=== PATIENT | female | born 1965 | race Asian ===

== ENCOUNTER 2020-11-30 21:52 | Emergency (ER) | payer OTHER ==
[~2020-11-30] VITALS: Ht 152.4 cm; Wt 60.3 kg
[2020-11-30 22:01] VITALS: Ht 152.4 cm; Wt 60.3 kg
[2020-11-30 22:36] LABS: PLATELET COUNT 271 x10^3mcL (179-408)
[2020-11-30 22:37] LABS: UA SPECIFIC GRAVITY >=1.030 (1.005-1.035); microscopic required? YES; urine erythrocyte 1+ (NEGATIVE)
[2020-11-30 22:50] LABS: ALBUMIN 3.8 g/dL (3.4-5.0); ALKALINE PHOSPHATASE 83 U/L (46-116); ALT/SGPT 34 U/L (14-59); AST/SGOT 21 U/L (15-37); BILIRUBIN TOTAL 0.6 mg/dL (0.20-1.00); CALCIUM 9.3 mg/dL (8.5-10.1); CARBON DIOXIDE 26.4 mmol/L (21-32); CHLORIDE SERUM 99 mmol/L (98-107); CREATININE SERUM 0.8 mg/dL (0.6-1.0); GFR1 > 60 mL/min; GLUCOSE SERUM 137 mg/dL (74-106); LIPASE 164 IU/L (73-393); POTASSIUM SERUM 3.8 mmol/L (3.5-5.1); SODIUM SERUM 136 mmol/L (136-145); TOTAL PROTEIN, SERUM 8.2 g/dL (6.4-8.2)
[2020-11-30 23:23] LABS: BAND NEUTROPHIL 2 % (0-10); MONOCYTE 1 % (0-7); SEGMENTED NEUTROPHILS 89 % (37-75); rbc morphology (normal/abnorm) NORMAL (NORMAL)
[2020-11-30 23:24] LABS: PLATELET MORPHOLOGY PLATELETS NORMAL
[2020-12-01] MEDS ORDERED: ACETAMINOPHEN-H1 TA1 PO (00:18)
[2020-12-01] MEDS ORDERED: ZOF4 PO (00:18)
[2020-12-01] MEDS ORDERED: KEF500 PO (00:21)
[2020-12-01 00:30] VITALS: BP 104/57
== END 2020-12-01 00:30 | disposition home or self-care (01) ==
LOC: ED 21:52
PROVIDERS: Emergency Medicine
DX: N39.0 Urinary tract infection, site not specified (principal); K21.9 Gastro-esophageal reflux disease without esophagitis; J45.909 Unspecified asthma, uncomplicated